=== PATIENT | female | born 1955 | race Caucasian/White ===

== ENCOUNTER 2016-05-13 23:02 | Emergency (ER) | payer OTHER ==
[~2016-05-13] VITALS: Ht 170.2 cm; Wt 83.9 kg
[~2016-05-13 23:02] MED LIST: ASPI1TAB2 PO; CYCL5TAB PO; ESTR1PAT34 TD; GABA-586 PO; NAPR220C4 PO; OXYC-323 PO; SIMV20TA3 PO; VARE0.5T PO
[2016-05-13 23:32] VITALS: BP 180/82
--- NOTE | 2016-05-13 23:56 | PHYS DOC ---
Past Medical History Past Medical History: Dementia, High Cholesterol, Other Additional Past Medical Histor: LACERATED SPLEEN, PNEUMOTHORAX Past Surgical History: Hysterectomy, Tonsillectomy, Other Additional Past Surgical Histo: PARTIAL THYROIDECTOMY Alcohol Use: Occasionally Drug Use: None Adult General Chief Complaint Chief Complaint: ABDOMINAL PAIN [facility] HPI Patient is a 60 year old female presents to emergency department stating that she has been having left posterior chest pain that radiates around to the front chest area. She states that she has had some occasional shortness of air difficulty breathing. She also states that she's been having some abdominal discomfort and felt bloating. Patient states this is been going on for approximately a month now she also states that she was seen by her primary care physician on April 17 they had labs obtained which was drawn on April 30. She states that she has not had the results of the lab results back as of yet. Patient states that she has not had any nausea vomiting or diarrhea. Patient states that she has been taken omeprazole for the last week without relief. She also states that tonight she take Gas-X thinking that this may help with no relief. Patient states that she stopped smoking in July 2015 and started on Chantix or what she was on for 5 months. She states that she has also stops taking the Chantix has been started on Wellbutrin. Review of Systems Review of Systems Constitutional: Denies fever or chills [] Eyes: Denies change in visual acuity, redness, or eye pain [] HENT: Denies nasal congestion or sore throat [] Respiratory: Denies cough C/o shortness of breath and left posterior chest discomfort Cardiovascular: No additional information not addressed in HPI [] GI: Denies abdominal pain, nausea, vomiting, bloody stools or diarrhea [] : Denies dysuria or hematuria [] Musculoskeletal: Denies back pain or joint pain [] Integument: Denies rash or skin lesions [] Neurologic: Denies headache, focal weakness or sensory changes [] Allergies Allergies Allergies Coded Allergies Type Severity Reaction Last Updated Verified No Known Drug Allergies 08/22/13 No Physical Exam Physical Exam Constitutional: Well developed, well nourished, no acute distress, non-toxic appearance. [] HENT: Normocephalic, atraumatic, bilateral external ears normal, oropharynx moist, no oral exudates, nose normal. [] Eyes: PERRLA, EOMI, conjunctiva normal, no discharge. [] Neck: Normal range of motion, no tenderness, supple, no stridor. [] Cardiovascular:Heart rate regular rhythm, no murmur [] Lungs & Thorax: Bilateral breath sounds clear to auscultation [] Abdomen: Bowel sounds hypoactive, soft, no tenderness, no masses, no pulsatile masses. [] Skin: Warm, dry, no erythema, no rash. [] Back: No tenderness, no CVA tenderness. [] Extremities: No tenderness, no cyanosis, no clubbing, ROM intact, no edema. [] Neurologic: Alert and oriented X 3, normal motor function, normal sensory function, no focal deficits noted. [] Psychologic: Affect normal, judgement normal, mood normal. [] Current Patient Data Vital Signs Vital Signs Date Time Temp Pulse Resp B/P Pulse Ox O2 Delivery O2 Flow Rate FiO2 05/13/16 23:32 98.2 81 18 180/82 97 Room Air 98.2 EKG EKG [] Radiology/Procedures Radiology/Procedures [] Course & Med Decision Making Course & Med Decision Making Pertinent Labs and Imaging studies reviewed. (See chart for details) Acute abdomen appears to be nonspecific according to Dr. Hoffman. Patient will be placed on hydrochlorothiazide as blood pressure slightly elevated. Patient will also be provided with some Flexeril to see if this will help with the back pain that radiates around. Recommended patient to follow up with her primary care physician in the next 2-3 days. Signs and symptoms to return back to emergency department as been provided. Patient agrees with discharge instructions, treatment regimens and follow-up recommendations. Also recommended patient to continue with ibuprofen 800 mg every 8 hours. Take this medication with food to prevent upset stomach. [] Dragon Disclaimer Dragon Disclaimer This electronic medical record was generated, in whole or in part, using a voice recognition dictation system. Departure Departure Impression: Primary Impression: Back pain Disposition: HOME, SELF-CARE Condition: STABLE Referrals: ALICE COVARRUBIAS MD (PCP) Patient Instructions: Back Pain, Adult, [id number] Additional Instructions: Activity as tolerated Medication as prescribed Flexeril will cause drowsiness do not take if you need to be alert and oriented Followup with your primary care provider in 2-3 days Return to emergency department as needed for signs and symptoms that become worse. Scripts Cyclobenzaprine Hcl 10 Mg [id number] Mg PO TID #20 TAB Prov:INGRIS KEYS NP 05/14/16 INGRIS KEYS NP May 13, 2016 23:56
[2016-05-14] MEDS ORDERED: CYCL10TA2 PO (00:27)
[2016-05-14] MEDS ORDERED: HYDR12.53 PO (00:37)
[2016-05-14] MEDS ORDERED: CYCLOBENZAPRINE 10 MG TABLET. PO ONE (01:00)
[2016-05-14] MEDS ORDERED: HYDROCODONE/APAP 5/325MG TABLET. PO ONE (01:00)
--- NOTE | 2016-05-14 08:14 | RAD ---
EXAM: Abdomen acute complete. HISTORY: Pain. COMPARISON: 01/16/2009. FINDINGS: A frontal view of the chest and frontal upright and supine views of the abdomen are obtained. There is no infiltrate, effusion or pneumothorax. The heart is normal in size. There are healed rib fractures. There is slight elevation of the right hemidiaphragm. There is gas and stool within the colon. No abnormally dilated air-filled loop of small bowel seen. There is no transition point to suggest obstruction. IMPRESSION: 1. No acute pulmonary finding. 2. Nonobstructive bowel gas pattern.
== END 2016-05-14 00:51 | disposition home or self-care (01) ==
LOC: ER 23:02
DX: M54.9 Dorsalgia, unspecified (principal); R07.89 Other chest pain; R06.02 Shortness of breath; R14.0 Abdominal distension (gaseous); F03.90 Unspecified dementia, unspecified severity, without behavioral disturbance, psychotic disturbance, mood disturbance, and anxiety; E78.00 Pure hypercholesterolemia, unspecified; Z87.891 Personal history of nicotine dependence
CPT/HCPCS: 74022; 99284

== ENCOUNTER → 2016-05-22 | Outpatient (CLI) | payer OTHER ==
[2016-05-13 23:32] VITALS: BP 180/82
[~2016-05-22] MED LIST changes: +CYCL10TA2 PO; +HYDR12.53 PO
--- NOTE | 2016-05-22 09:05 | RAD ---
Indication:Abdominal bloating Grayscale images of the abdomen were obtained. Comparison none Liver:There is some increased attenuation of the ultrasound beam by the liver compatible with fatty infiltration. A focal mass lesion is not seen and the visualized liver. The liver is mildly enlarged. Gallbladder:Normal. The common bile duct diameter of approximately 3 mm is normal Spleen:Normal Pancreas:Only partially visualized. Largely obscured. That portion of the pancreas which was seen appeared unremarkable. Kidneys:Normal Abdominal aorta and IVC:As visualized normal. Both of these vascular structures were partially obscured similar to the pancreas Ancillary findings:None Impression:Fatty infiltration of the liver. No acute finding seen. Midline structures partially obscured
--- NOTE | 2016-05-23 11:16 | RAD ---
DATE: May 22, 2016 EXAM: DIGITAL SCREEN BILAT W/CAD HISTORY: Screening study COMPARISON: February 01, 2013 This study was interpreted with the benefit of Computerized Aided Detection (CAD ). FINDINGS: The breast parenchyma is scattered and mildly dense. There are no dominant suspicious masses, suspicious microcalcifications or evidence of architectural distortion. IMPRESSION: There are no mammographic indicators for malignancy. BI-RADS CATEGORY: 1 NEGATIVE RECOMMENDED FOLLOW-UP: Annual screening PQRS compliance statement: Patient information was entered into a reminder system with a target due date May 23, 2017 for the next mammogram. Mammography is a sensitive method for finding small breast cancers, but it does not detect them all and is not a substitute for careful clinical examination. A negative mammogram does not negate a clinically suspicious finding and should not result in delay in biopsying a clinically suspicious abnormality. "Our facility is accredited by the [employer] Mammography [employer]." The patient's breast density may affect the ability of mammography to detect breast cancer. There are 4 categories of breast density, A, B, C and D. Breast density A means that most of the breast tissue is replaced with adipose tissue and therefore is not dense. Breast density B means that the breast tissue is mildly dense and scattered. Breast density C means that the breast tissue is heterogeneously dense. Breast density D means that the breast tissue is very dense. Breast densities especially C and D may decrease the sensitivity of mammography to detect breast cancer. Therefore, the patient may benefit from 3- D breast mammography (3D breast tomography) as a part of their screening mammogram. Insurance may or may not pay for this additional imaging. The patient 's breast density based on today's mammogram is category B.. MTDD
== END | disposition home or self-care (01) ==
LOC: US 06:32
PROVIDERS: ATTEND Physician Assistant Medical
DX: Z12.31 Encounter for screening mammogram for malignant neoplasm of breast (principal); K76.0 Fatty (change of) liver, not elsewhere classified; R14.0 Abdominal distension (gaseous)
CPT/HCPCS: 76700; G0202; 77067

== ENCOUNTER → 2017-07-04 | Outpatient (CLI) | payer OTHER ==
[2017-07-04 09:13] LABS: ADD MAN DIFF? NO
[2017-07-04 09:17] LABS: BASO # 0.1 x10^3/uL (0.0-0.2); BASO % 1 % (0-3); EOS # 0.1 x10^3/uL (0.0-0.7); EOS % 2 % (0-3); HEMATOCRIT 42.3 % (36.0-47.0); HEMOGLOBIN 14.5 g/dL (12.0-15.5); LYMPH # 2.4 x10^3/uL (1.0-4.8); LYMPH % 38 % (24-48); MEAN CORPUSCULAR HEMOGLOBIN 30 pg (25-35); MEAN CORPUSCULAR HGB CONC 34 g/dL (31-37); MEAN CORPUSCULAR VOLUME 89 fL (79-100); MONO # 0.5 x10^3/uL (0.0-1.1); MONO % 8 % (0-9); NEUT # 3.2 x10^3uL (1.8-7.7); NEUT % 50 % (31-73); PLATELET COUNT 173 x10^3/uL (140-400); RED BLOOD COUNT 4.78 x10^6/uL (3.50-5.40); RED CELL DISTRIBUTION WIDTH 12.8 % (11.5-14.5); WHITE BLOOD COUNT 6.3 x10^3/uL (4.0-11.0)
[2017-07-04 09:35] LABS: ALBUMIN 3.9 g/dL (3.4-5.0); ALK PHOS 66 U/L (46-116); ALT (SGPT) 64 U/L (14-59); ANION GAP 6 (6-14); AST (SGOT) 27 U/L (15-37); BLOOD UREA NITROGEN 17 mg/dL (7-20); BUN/CREATININE RATIO 19 (6-20); CALCIUM 9.2 mg/dL (8.5-10.1); CARBON DIOXIDE 29 mmol/L (21-32); CHLORIDE 102 mmol/L (98-107); CHOLESTEROL 282 mg/dL (0-200); CHOLESTEROL/HDL RATIO 7.1; CREATININE 0.9 mg/dL (0.6-1.0); GFR 64.1; GLUCOSE 190 mg/dL (70-99); HDLC 40 mg/dL (40-60); LDLC 186 mg/dL (0-100); NON-HDL CHOLESTEROL 242 mg/dL (0-129); POTASSIUM 4.4 mmol/L (3.5-5.1); SODIUM 137 mmol/L (136-145); TOTAL BILIRUBIN 0.5 mg/dL (0.2-1.0); TOTAL PROTEIN 7.7 g/dL (6.4-8.2); TRIGLYCERIDES 282 mg/dL (0-150); VLDLC 56 mg/dL (0-40)
[2017-07-04 09:43] LABS: THYROID STIM HORMONE (TSH) 2.125 uIU/mL (0.358-3.74)
== END | disposition home or self-care (01) ==
LOC: LAB 08:53
DX: I10 Essential (primary) hypertension (principal); E11.9 Type 2 diabetes mellitus without complications; E78.2 Mixed hyperlipidemia
CPT/HCPCS: 36415; 80053; 80061; 84443; 85025

== ENCOUNTER → 2017-08-04 | Outpatient (CLI) | payer OTHER | END | disposition home or self-care (01) | LOC: MAMMO 09:18 | DX: Z12.31 Encounter for screening mammogram for malignant neoplasm of breast (principal) | CPT/HCPCS: 77063; 77067 ==

== ENCOUNTER → 2017-08-06 | Outpatient (CLI) | payer OTHER | END | disposition home or self-care (01) | LOC: US 13:47 | DX: N63.10 Unspecified lump in the right breast, unspecified quadrant (principal) | CPT/HCPCS: 76641 ==

== ENCOUNTER → 2018-02-04 | Outpatient (CLI) | payer OTHER ==
[~2018-02-04] MED LIST changes: +ASPI-621 PO; -ASPI1TAB2 PO
--- NOTE | 2018-02-04 14:39 | RAD ---
Right breast ultrasound, 02/04/2018: History: Follow-up nodule A targeted ultrasound exam was performed at the 9:00 location approximately 4 cm in the nipple. Again noted is a small cystic-appearing structure measuring 2 x 3 x 3 mm. There is a sharp posterior wall. There are low level internal echoes. The appearance is similar to on the previous study. This is probably a small complicated cyst. No new abnormality is seen in this region. IMPRESSION: Stable small right breast nodule, probably a couple gated cyst. Follow-up bilateral mammography and right breast ultrasound in 6 months is suggested to confirm stability. BI-RADS 3-probably benign findings
== END | disposition home or self-care (01) ==
LOC: US 14:05
PROVIDERS: ATTEND Family Medicine
DX: N63.11 Unspecified lump in the right breast, upper outer quadrant (principal)
CPT/HCPCS: 76641

== ENCOUNTER → 2018-04-15 | Outpatient (CLI) | payer OTHER ==
[~2018-04-15] MED LIST changes: -GABA-586 PO; +GABA300C18 PO; -HYDR12.53 PO; +HYDR12.575 PO; -OXYC-323 PO; +OXYC1TAB15 PO
[2018-04-15 09:13] LABS: CHOLESTEROL/HDL RATIO 3.7
== END | disposition home or self-care (01) ==
LOC: LAB 06:09
PROVIDERS: ATTEND Family Medicine
DX: E78.5 Hyperlipidemia, unspecified (principal)
CPT/HCPCS: 36415; 80061

== ENCOUNTER → 2018-11-23 | Outpatient (CLI) | payer BC ==
--- NOTE | 2018-11-25 11:18 | RAD ---
EXAM: MAMMO FLO DIAG BILAT, ULTRASOUND BREAST RIGHT HISTORY: routine screening evaluation. COMPARISON: Prior mammographic imaging 02/04/2018, 08/06/2017, 08/04/2017, 05/22/16 Bilateral CC and MLO views of the breasts were performed. Bilateral breast tomosynthesis was performed in CC and MLO projections. This study was interpreted with the benefit of Computerized Aided Detection (CAD). Breast Density: The breast parenchyma is heterogeneously dense, which could reduce sensitivity of mammography. Breast parenchyma level C. FINDINGS: Benign calcifications are present. The parenchymal pattern appears stable. The small nodule in the anterior right breast is again seen, grossly stable in appearance. No suspicious right breast microcalcification or architectural distortion is seen. No suspicious masses, microcalcifications or architectural distortion is present to suggest malignancy in the left breast. The visualized axillae are unremarkable. Ultrasound was then performed to further evaluate the findings in the right breast. ULTRASOUND FINDINGS: Targeted ultrasound of the previously described probably benign finding was again performed. 9:00 position, 4 cm from the nipple: A near anechoic mass of circumscribed margins and internal homogeneous low level echoes is present with parallel orientation and is of oval/round shape. There is no internal vascularity on Doppler interrogation. It demonstrates posterior acoustic enhancement and measures 0.4 x 0.2 x 0.2 cm, previously 0.3 x 0.2 x 0.3 cm. IMPRESSION: Stable right breast nodule, possibly a complicated cyst. BI-RADS CATEGORY: 3 PROBABLY BENIGN FINDING(S)-SHORT INTERVAL FOLLOW-UP SUGGESTED RECOMMENDED FOLLOW-UP: 12M 12 MONTH FOLLOW-UP. Diagnostic mammography and ultrasound is recommended in 12 months unless clinically indicated sooner based on symptoms or change in physical exam. PQRS compliance statement: Patient information was entered into a reminder system with a target due date for the next mammogram. Mammography is a sensitive method for finding small breast cancers, but it does not detect them all and is not a substitute for careful clinical examination. A negative mammogram does not negate a clinically suspicious finding and should not result in delay in biopsying a clinically suspicious abnormality. JENNIFERD
== END | disposition home or self-care (01) ==
LOC: MAMMO 09:00
PROVIDERS: ATTEND Family Medicine
DX: N63.11 Unspecified lump in the right breast, upper outer quadrant (principal); R92.1 Mammographic calcification found on diagnostic imaging of breast
CPT/HCPCS: 76641; 77066; G0279; 77062

== ENCOUNTER → 2019-11-24 | Outpatient (CLI) | payer BC ==
[~2019-11-24] MED LIST changes: +SIMV20TA18 PO; -SIMV20TA3 PO
--- NOTE | 2019-11-24 12:07 | RAD ---
EXAM: 1. BILATERAL DIGITAL DIAGNOSTIC MAMMOGRAPHY. 2. RIGHT BREAST ULTRASOUND. HISTORY: 12 month follow-up right breast lesion. TECHNIQUE: Bilateral full field digital images were obtained in CC and MLO projections. Computer-aided detection was applied. Sonography of the right breast was also performed. COMPARISON: 11/23/2018, 08/04/2017. COMPOSITION: B. There are scattered areas of fibroglandular density. FINDINGS: There are no suspicious masses, microcalcifications or architectural distortion. The parenchymal pattern is stable. A few scattered calcifications are benign. Sonography of the right breast was performed at the site of prior concern. At the 9:00 position, 4 cm from the nipple, a hypoechoic oval nodule measures 3 x 2 x 2 mm, decreased from 4 x 2 x 2 mm previously. This is consistent with a benign complicated cyst. There is no suspicious sonographic finding. BI-RADS CATEGORY: 2: Benign. RECOMMENDATION: 1. Routine screening mammography in one year. If mammography demonstrates dense breast tissue (heterogenously dense or extremely dense, category C or D), which could hide abnormalities, and if other risk factors for breast cancer have been identified, supplemental screening tests that may be suggested by the ordering physician may be of benefit. Dense breast tissue, in and of itself, is a relatively common condition. Therefore, this information is not provided to cause undue concern, but rather to raise awareness and to promote discussion with the referring physician regarding the presence of other risk factors, in addition to dense breast tissue. The results of this mammography examination is provided to the patient and referring physician. The patient should contact their referring physician if any questions or concerns exist regarding this report. PQRS compliance statement - Patient information was entered into a reminder system with a target due date for the next mammogram. "Our facility is accredited by the [employer] Mammography [employer]." Electronically signed by: Maria Teresa Jeronimo MD (11/24/2019 12:04 PM) [id number]
== END | disposition home or self-care (01) ==
LOC: MAMMO 11:35
PROVIDERS: ATTEND Family Medicine
DX: R92.1 Mammographic calcification found on diagnostic imaging of breast (principal); N63.13 Unspecified lump in the right breast, lower outer quadrant
CPT/HCPCS: 76641; 77066; G0279; 77062